=== PATIENT | female | born 1970 | race African-American/Black ===

== ENCOUNTER → 2018-02-09 08:48 | Outpatient (CLI) | payer OTHER | END | disposition home or self-care (01) | LOC: LAB 08:48 | DX: I10 Essential (primary) hypertension (principal) ==

== ENCOUNTER 2018-02-14 12:00 | Outpatient (CLI) | payer OTHER | END 2018-02-14 14:44 | disposition home or self-care (01) | LOC: MAMO-SONO 12:00 | DX: Z12.31 Encounter for screening mammogram for malignant neoplasm of breast (principal); N64.4 Mastodynia ==

== ENCOUNTER 2018-05-08 08:16 | Outpatient (CLI) | payer OTHER ==
[~2018-05-08] VITALS: Ht 152.4 cm; Wt 63.5 kg
== END 2018-05-08 08:35 | disposition home or self-care (01) ==
LOC: OFIC 805 08:16
DX: H93.12 Tinnitus, left ear (principal)

== ENCOUNTER → 2018-10-26 14:02 | Outpatient (CLI) | payer OTHER | END | disposition home or self-care (01) | LOC: LAB 14:02 | DX: N95.1 Menopausal and female climacteric states (principal); N91.0 Primary amenorrhea ==

== ENCOUNTER 2018-10-30 12:30 | Outpatient (CLI) | payer OTHER | END 2018-10-30 12:41 | disposition home or self-care (01) | LOC: SONOGRAMA 12:30 | DX: D25.1 Intramural leiomyoma of uterus (principal); N91.2 Amenorrhea, unspecified; R10.31 Right lower quadrant pain; R10.32 Left lower quadrant pain ==

== ENCOUNTER → 2019-06-26 09:13 | Outpatient (CLI) | payer OTHER | END | disposition home or self-care (01) | LOC: LAB 09:13 | DX: J11.1 Influenza due to unidentified influenza virus with other respiratory manifestations (principal) ==

== ENCOUNTER 2020-01-10 11:32 | Outpatient (CLI) | payer OTHER | END 2020-01-10 11:46 | disposition home or self-care (01) | LOC: RAD 11:32 | PROVIDERS: ATTEND General Practice | DX: R07.89 Other chest pain (principal) ==

== ENCOUNTER → 2020-01-10 12:33 | Outpatient (CLI) | payer OTHER | END | disposition home or self-care (01) | LOC: LAB 12:33 | PROVIDERS: ATTEND General Practice | DX: Z11.2 Encounter for screening for other bacterial diseases (principal) ==

== ENCOUNTER 2020-01-27 12:36 | Outpatient (CLI) | payer OTHER | END 2020-01-27 14:07 | disposition home or self-care (01) | LOC: PPH VACUNA 12:36 | DX: Z23 Encounter for immunization (principal) ==

== ENCOUNTER 2021-02-17 16:00 | Outpatient (CLI) | payer OTHER | END 2021-02-17 16:05 | disposition home or self-care (01) | LOC: PPH VACUNA 16:00 | PROVIDERS: ATTEND Emergency Medicine Pediatric Emergency Medicine | DX: Z23 Encounter for immunization (principal) ==

== ENCOUNTER 2021-05-11 10:30 | Outpatient (CLI) | payer OTHER | END 2021-05-11 10:40 | disposition home or self-care (01) | LOC: PPH VACUNA 10:30 | PROVIDERS: ATTEND Emergency Medicine Pediatric Emergency Medicine | DX: Z23 Encounter for immunization (principal) ==

== ENCOUNTER 2021-12-22 15:15 | Outpatient (CLI) | payer OTHER | END 2021-12-22 15:28 | disposition home or self-care (01) | LOC: MAMO-SONO 15:15 | PROVIDERS: ATTEND General Practice | DX: N64.4 Mastodynia (principal) ==

== ENCOUNTER 2022-01-25 11:00 | Outpatient (CLI) | payer OTHER | END 2022-01-25 11:05 | disposition home or self-care (01) | LOC: PPH VACUNA 11:00 | PROVIDERS: ATTEND Emergency Medicine Pediatric Emergency Medicine | DX: Z23 Encounter for immunization (principal) ==

== ENCOUNTER 2022-11-10 13:01 | Outpatient (CLI) | payer OTHER | END 2022-11-10 13:04 | disposition home or self-care (01) | LOC: SONOGRAMA 13:01 | PROVIDERS: ATTEND Obstetrics & Gynecology | DX: N94.0 Mittelschmerz (principal); R10.2 Pelvic and perineal pain; N94.89 Other specified conditions associated with female genital organs and menstrual cycle ==

== ENCOUNTER → 2022-11-11 06:00 | Outpatient (CLI) | payer OTHER | END | disposition home or self-care (01) | LOC: LAB 06:00 | PROVIDERS: ATTEND Obstetrics & Gynecology | DX: E03.9 Hypothyroidism, unspecified (principal); I10 Essential (primary) hypertension; E78.00 Pure hypercholesterolemia, unspecified; N39.0 Urinary tract infection, site not specified; Z11.4 Encounter for screening for human immunodeficiency virus [HIV]; Z12.11 Encounter for screening for malignant neoplasm of colon; E55.9 Vitamin D deficiency, unspecified; Z21 Asymptomatic human immunodeficiency virus [HIV] infection status; R79.9 Abnormal finding of blood chemistry, unspecified; R79.89 Other specified abnormal findings of blood chemistry; Z00.00 Encounter for general adult medical examination without abnormal findings ==

== ENCOUNTER 2023-01-11 13:28 | Outpatient (CLI) | payer OTHER | END 2023-01-11 13:30 | disposition home or self-care (01) | LOC: MAMO-SONO 13:28 | PROVIDERS: ATTEND Obstetrics & Gynecology | DX: N63.0 Unspecified lump in unspecified breast (principal); N64.59 Other signs and symptoms in breast; N64.9 Disorder of breast, unspecified; Z12.31 Encounter for screening mammogram for malignant neoplasm of breast ==

== ENCOUNTER 2023-02-02 09:30 | Outpatient (CLI) | payer OTHER | END 2023-02-02 09:40 | disposition home or self-care (01) | LOC: PPH VACUNA 09:30 | PROVIDERS: ATTEND Emergency Medicine Pediatric Emergency Medicine | DX: Z23 Encounter for immunization (principal) | CPT/HCPCS: 90686; G0008 ==

== ENCOUNTER → 2023-05-16 14:09 | Outpatient (CLI) | payer OTHER | END | disposition home or self-care (01) | LOC: LAB 14:09 | PROVIDERS: ATTEND Preventive Medicine Occupational Medicine | DX: U07.1 COVID-19 (principal) ==

== ENCOUNTER 2023-07-19 13:26 | Outpatient (CLI) | payer OTHER ==
[2023-07-19 14:17] LABS: HEMATOCRIT 42.6 % (36.0-45.00); HEMOGLOBIN 14.6 g/dL (12.0-15.00); MEAN CELL VOLUME 92.8 fL (80.00-100.00); MEAN CORPUSCULAR HEMOGLOBIN 31.9 pg (27.00-32.0); MEAN CORPUSCULAR HGB CONC 34.3 g/dl (32.0-36.0); PLATELET COUNT 282 K/uL (150-450); RED BLOOD COUNT 4.59 M/uL (4.00-6.00); RED CELL DISTRIBUTION WIDTH 13.3 % (11.5-14.5)
[2023-07-19 15:12] LABS: MYCOPLASMA PNEUMONIAE IGM NON REACTIVE (NO REACTIVE)
== END 2023-07-19 23:00 | disposition home or self-care (01) ==
LOC: LAB 13:26
PROVIDERS: ATTEND General Practice
DX: R05.9 Cough, unspecified (principal); J06.9 Acute upper respiratory infection, unspecified; R50.9 Fever, unspecified; Z11.52 Encounter for screening for COVID-19

== ENCOUNTER → 2023-11-29 10:00 | Outpatient (CLI) | payer OTHER ==
[2023-11-29 10:37] LABS: HEMATOCRIT 40.6 % (36.0-45.00); HEMOGLOBIN 14.1 g/dL (12.0-15.00); MEAN CELL VOLUME 90.7 fL (80.00-100.00); MEAN CORPUSCULAR HEMOGLOBIN 31.5 pg (27.00-32.0); MEAN CORPUSCULAR HGB CONC 34.8 g/dl (32.0-36.0); PLATELET COUNT 278 K/uL (150-450); RED BLOOD COUNT 4.48 M/uL (4.00-6.00)
== END | disposition home or self-care (01) ==
LOC: LAB 10:00
PROVIDERS: ATTEND Internal Medicine Pulmonary Disease
DX: J45.30 Mild persistent asthma, uncomplicated (principal); R05.3 Chronic cough

== ENCOUNTER → 2024-03-01 08:57 | Outpatient (CLI) | payer OTHER ==
[2024-03-01 09:52] LABS: MEAN CELL VOLUME 91.6 fL (80.00-100.00); MEAN CORPUSCULAR HEMOGLOBIN 31.2 pg (27.00-32.0); MEAN CORPUSCULAR HGB CONC 34.1 g/dl (32.0-36.0); PLATELET COUNT 270 K/uL (150-450); RED BLOOD COUNT 4.48 M/uL (4.00-6.00); RED CELL DISTRIBUTION WIDTH 13.5 % (11.5-14.5)
[2024-03-01 10:20] LABS: PH,URINE 6.5 (5.0-8.0); URINE APPEARANCE Clear; URINE BILIRRUBIN Negative (NEGATIVE); URINE BLOOD Negative; URINE COLOR Yellow; URINE GLUCOSE Negative (NEGATIVE); URINE KETONE Negative (NEGATIVE); URINE LEUKOCYTE Negative; URINE NITRATE Negative; URINE PROTEIN Negative (NEGATIVE); URINE UROBILINOGEN 0.2 E.U./dl
[2024-03-01 10:23] LABS: URINE BACTERIA 173.8 uL (0.0-1933); URINE EPITHELIAL CELLS 7.2 uL (0.0-38.8); URINE RBC 2.4 uL (0.0-20.8); URINE WBC 3.2 uL (0.0-23.2)
[2024-03-01 10:34] LABS: ALBUMIN 3.9 gm/dL (3.4-5.0); BILIRUBIN TOTAL 0.36 mg/dL (0.3-1.2); CALCIUM 9.1 mg/dL (8.5-10.1); CHOL HDL RATIO 2.5 (0-5.0); CREATININE SERUM 0.78 mg/dL (0.55-1.02); GFR 77.26; GLOBULINA 3.6 G/DL (2.4-3.5); POTASSIUM 4.28 mEq/L (3.5-5.1); T4 TOTAL 8.88 UG/DL (4.8-13.9); TOTAL PROTEIN 7.5 gm/dL (6.4-8.2); TSH 0.7 uIU/mL (0.358-3.74)
== END | disposition home or self-care (01) ==
LOC: LAB 08:57
DX: I10 Essential (primary) hypertension (principal); E07.9 Disorder of thyroid, unspecified; E08.9 Diabetes mellitus due to underlying condition without complications

== ENCOUNTER 2024-03-04 14:27 | Outpatient (CLI) | payer OTHER | END 2024-03-04 14:33 | disposition home or self-care (01) | LOC: MAMO-SONO 14:27 | PROVIDERS: ATTEND Surgery | DX: N60.11 Diffuse cystic mastopathy of right breast (principal); N60.12 Diffuse cystic mastopathy of left breast ==